=== PATIENT | male | born 1975 | race Caucasian/White ===

== ENCOUNTER 2017-08-11 13:02 | Emergency (ER) | payer SELFPAY ==
[2017-08-11] MEDS ORDERED: NS 0.9% 1000 ML* 1,000 ML IV ONE (13:04)
[2017-08-11] MEDS ORDERED: methylPREDNISolone 125 MG* 2 ML VIAL IV ONE (13:04)
[2017-08-11] MEDS ORDERED: Famotidine IV* 10 MG/ML 2 ML (20 mg) IV SLOW PU ONE (13:04)
--- NOTE | 2017-08-11 13:21 | UC ---
Kayden Wood Julia, scribed for Venita Atkinson MD on 08/11/17 at 1310 . Allergic Reaction HPI - HPI Summary HPI Summary: A 41 year old M presents to [facility] due to an allergic reaction to a bee sting to his right wrist 20 or 30 minutes prior to arrival. Patient states he started to feel some tingling in the back of his throat. Patient denies shortness of breath. No wheezing. No intraoral edema. Patient took 50 mg of Benadryl and his drove him here. Patient without any itching or hives. Patient without nausea or vomiting. Patient without lightheadedness. Patient states he had a reaction to a bee sting when he was a child but nothing else. Patient's medications reviewed - History of Current Complaint Stated Complaint: ALLERGIC REACTION Hx Obtained From: Patient Onset/Duration: Lasting Minutes Location: Discrete @ - throat Character: Pruritus - "tingling" Alleviating Factor(s): OTC Meds Associated Signs And Symptoms: Negative: Difficulty Breathing, Nausea, Throat Tightening - Allergies/Home Medications Allergies/Adverse Reactions: Allergies Allergy/AdvReac Type Severity Reaction Status Date / Time Tetracyclines Allergy Unknown Verified 08/11/17 13:17 Reaction Details muscle relaxer Allergy See Comment Uncoded 08/11/17 13:37 Home Medications: Home Medications diphenhydrAMINE HCl [Benadryl Allergy 25 MG CAP] 50 mg PO ONCE PRN 08/11/17 [ History Confirmed 08/11/17] PMH/Surg Hx/FS Hx/Imm Hx Previously Healthy: Yes - Surgical History Surgical History: None - Family History Known Family History: Positive: Hypertension - Social History Occupation: Employed Full-time - preacher Lives: With Family Alcohol Use: None Substance Use Type: None Smoking Status (MU): Never Smoked Tobacco Review of Systems Skin: Negative ENT: Sore Throat - throat "tingling" Respiratory: Negative Gastrointestinal: Negative All Other Systems Reviewed And Are Negative: Yes Physical Exam - Summary Physical Exam Summary: Vital Signs Reviewed: Yes A+Ox3, no distress speakng full, easy sentences Eyes: Conjunctiva Clear, JAYRO. EOM intact and full ENT: Hearing grossly normal TM x 2 clear, mmoist, uvula midline, no exudate, no erythema no intraoral edema Neck: Positive: Supple Respiratory: Positive: No respiratory distress, No accessory muscle use + CTA throughout no w/r Cardiovascular: RRR nl s1, s2 no m/r CBT <2 sec abd soft + BS nt/nd no guarding, no distension Musculoskeletal Exam: LAZO x 4 without difficulty Strength Intact, ROM Intact Neurological: Positive: Alert, + sensation throughout Psychological: Positive: Normal Response To Family Skin: Positive: no rash, no ecchymosis pt with mild area of edema right wrist - site of sting no hives, no flush Triage Information Reviewed: Yes Re-Evaluation - Re-Evaluation First Eval Change: Unchanged Second Eval Re-Evaluation Time: 13:35 Change: Improved Third Eval Re-Evaluation Time: 13:44 Change: Improved Comment: feeling a little better Allergic Reaction Course/Dx - Course Course Of Treatment: Patient presents with tingling feeling in the back of his throat following a bee sting that happened approximately 30 minutes prior to arrival. Patient with a history of reaction as a child. Patient has not had a reaction adults. Patient 50 g of Benadryl prior to arrival. Patient denies shortness of breath. No drooling. No difficulty with secretions. No wheezing. No lightheadedness. No rash. He did put baking soda on the area of the sting. - Differential Dx/Diagnosis Provider Diagnoses: acute allergic reaction Discharge - Sign-Out/Discharge Documenting (check all that apply): Discharge/Admit/Transfer - Discharge Plan Condition: Stable Disposition: HOME Prescriptions: diPHENhydraMINE PO* [Benadryl PO 25 MG TAB*] 25 mg PO Q6H PRN #30 tab PRN Reason: Itching EPINEPHrine [Epipen 2-Lucas] 0.3 mg IJ ONCE #1 auto.injct Famotidine TAB* [Pepcid 20 MG TAB*] 20 mg PO DAILY #14 tab predniSONE TAB* [Deltasone TAB*] 50 mg PO DAILY #4 tab Patient Education Materials: Anaphylaxis (ED) Referrals: No Primary Care Phys,NOPCP [Primary Care Provider] - Additional Instructions: - Take prednisone exactly as prescribed until gone - starting tomorrow - Okay to take Benadryl (1-2 tablets) every 6 hours as needed. This medication may cause drowsiness - do NOT drive, operate machinery or drink alcohol while taking Benadryl -Take pepcid as prescribed - 2 times daily for 7 days starting tomorrow -Avoid getting over heated (hot showers, hot tubs, exercise) for at least 48 hours - Try to avoid aspirin, NSAIDs (Motrin, Aleve, Naprosyn) for 2-3 days - Okay to apply cool compresses to the area of injury - fill the prescription for the epi pen - keep it with you and use as needed for allergic reactions -Contact your doctor or return here with questions or concerns - Billing Disposition and Condition Condition: STABLE Disposition: Home The documentation as recorded by the Kayden benson Julia accurately reflects the service I personally performed and the decisions made by me, Venita Atkinson MD.
== END 2017-08-11 15:00 | disposition home or self-care (01) ==
LOC: UCEAST 13:02
DX: T63.441A Toxic effect of venom of bees, accidental (unintentional), initial encounter (principal); Z88.1 Allergy status to other antibiotic agents; Z88.8 Allergy status to other drugs, medicaments and biological substances; Y92.9 Unspecified place or not applicable
CPT/HCPCS: 96360; 96374; 96376; 99202; G0463; J2930

== ENCOUNTER 2018-07-10 20:17 | Emergency (ER) | payer MEDICAID, OTHER ==
--- NOTE | 2018-07-10 20:44 | ED ---
HPI Chest Pain - HPI Summary HPI Summary: Patient is a 42 y/o M presenting to ED with complaints of midsternal chest pain. He describes chest pain as if someone was pressing on his back and on his chest. Chest pain onset in the morning yesterday, 07/09/18, upon waking up. He states that the chest pain was present throughout the day but resolved in the evening while he was watching TV. Today, patient went to [employer], drove to [place] [employer], then drove back here to [place], and was shopping at [employer]. Patient states that he became stressed while shopping and experienced onset of chest pain once more. Fever, N/V, calf pain, MCMAHAN, dizziness are denied. He states he was SOB yesterday, 07/09/18. He notes that he begins to cough when chest pain is moderate in severity. At max, pain is rated 4-5/10. Episodes of chest pain last several hours typically. He notes that he had a brief, fleeting episode of chest pain in triage that he rates 2/10 in severity. No chest pain at present. No Hx of HTN, diabetes, HLD. Patient has never smoked, denies alcohol and substance usage. FMHx of cardiac disease is denied, FMHx of HTN is endorsed. Patient takes an allergy medication. Nothing is noted to aggravate/alleviate Sx. Home medications and allergies are reviewed. Allergies Allergy/AdvReac Type Severity Reaction Status Date / Time Tetracyclines Allergy Unknown Verified 07/10/18 20:23 Reaction Details muscle relaxer Allergy See Comment Uncoded 07/10/18 20:23 - History of Current Complaint Chief Complaint: EDChestPainROMI Time Seen by Provider: 07/10/18 20:33 Hx Obtained From: Patient Onset/Duration: Started Days Ago - episodes onset yesterday, 07/09/18, Resolved Timing: Intermittent, Lasting Hours Initial Severity: Moderate - 4-5/10 Current Severity: None Pain Intensity: 4 Pain Scale Used: 0-10 Numeric Chest Pain Location: Mid Sternal Character: Pressure/Squeezing Aggravating Factor(s): Nothing Alleviating Factor(s): Nothing Associated Signs and Symptoms: Positive: Chest Pain, Shortness of Breath, Cough. Negative: Headaches, Dizziness, Fever, Nausea, Calf Pain/Swelling, Vomiting - Allergy/Home Medications Allergies/Adverse Reactions: Allergies Allergy/AdvReac Type Severity Reaction Status Date / Time Tetracyclines Allergy Unknown Verified 07/10/18 20:23 Reaction Details muscle relaxer Allergy See Comment Uncoded 07/10/18 20:23 PMH/Surg Hx/FS Hx/Imm Hx Endocrine/Hematology History: Denies: Hx Diabetes Cardiovascular History: Denies: Hx Hypercholesterolemia, Hx Hypertension Infectious Disease History: No Infectious Disease History: Denies: Traveled Outside the [place] in Last 30 Days - Family History Known Family History: Positive: Hypertension Negative: Cardiac Disease - Social History Alcohol Use: None Substance Use Type: Reports: None Smoking Status (MU): Never Smoked Tobacco Review of Systems Negative: Fever Positive: Chest Pain Positive: Shortness Of Breath, Cough Negative: Vomiting, Nausea Musculoskeletal: Other - NEGATIVE - CALF PAIN Neurological: Other - NEGATIVE - DIZZINESS Negative: Headache All Other Systems Reviewed And Are Negative: Yes Physical Exam - Summary Physical Exam Summary: Appearance: Well-appearing, no pain distress, well-nourished Skin: Warm, color reflects adequate perfusion, dry Head: Normal Head/Face inspection, atraumatic Eyes: Conjunctiva clear ENT: Normal inspection Neck: Supple, no nodes, no JVD Respiratory: Lungs clear, normal breath sounds, no respiratory distress Cardio: RRR, No murmur, pulses normal, brisk capillary refill Abdomen: Soft, nontender Bowel sounds: Present Musculoskeletal: Strength Intact/ROM intact, no calf tenderness, no edema. Psychological: Normal Neuro: Alert, muscle tone normal, no focal deficit Triage Information Reviewed: Yes Vital Signs On Initial Exam: Initial Vitals Temp Pulse Resp BP Pulse Ox 96.8 F 77 16 147/87 98 07/10/18 20:20 07/10/18 20:20 07/10/18 20:20 07/10/18 20:20 07/10/18 20:20 Vital Signs Reviewed: Yes Diagnostics - Vital Signs Vital Signs Temp Pulse Resp BP Pulse Ox 07/10/18 20:20 96.8 F 77 16 147/87 98 - Laboratory Result Diagrams: 07/10/18 20:56 07/10/18 20:56 Lab Statement: Any lab studies that have been ordered have been reviewed, and results considered in the medical decision making process. - Radiology chest x-ray Radiology Interpretation Completed By: ED Physician Summary of Radiographic Findings: CXR showed no acute disease, pending official report. - EKG 2030 Cardiac Rate: NL - rate of 61 BPM EKG Rhythm: Sinus Rhythm ST Segment: Non-Specific Ectopy: None EKG Comparison: Other - no priors to compare Summary of EKG Findings: EKG at 2030 showed sinus rhythm with rate of 61 BPM, nml AV/IV CT, nml QTc, and nml axis. No acute changes. No ectopy, no STEMI, non- specific ST, no priors to compare. Dr. Martin has reviewed and interpreted this EKG. Re-Evaluation - Re-Evaluation First Eval Re-Evaluation Time: 21:54 Comment: Lungs clear, no chest pain, is present, he is agreeable with discharge. Patient to be given albuterol inhaler. Strict return precautions given, patient will follow up with PCP. He is agreeable with discharge. Chest Pain Course/Dx - Course Course Of Treatment: Patient is a 42 y/o M presenting to ED with complaints of midsternal chest pain. He describes chest pain as if someone was pressing on his back and on his chest. Chest pain onset in the morning yesterday, 07/09/18, upon waking up. He states that the chest pain was present throughout the day but resolved in the evening while he was watching TV. Today, patient went to [employer], drove to [place] [employer], then drove back here to [place], and was shopping at [employer]. Patient states that he became stressed while shopping and experienced onset of chest pain once more. Fever, N/V, calf pain, MCMAHAN, dizziness are denied. He states he was SOB yesterday, 07/09/18. He notes that he begins to cough when chest pain is moderate in severity. At max, pain is rated 4-5/10. Episodes of chest pain last several hours typically. He notes that he had a brief, fleeting episode of chest pain in triage that he rates 2/10 in severity. No chest pain at present. No Hx of HTN, diabetes, HLD. Patient has never smoked, denies alcohol and substance usage. FMHx of cardiac disease is denied, FMHx of HTN is endorsed. Physical exam is unremarkable. EKG at 2030 showed sinus rhythm with rate of 61 BPM, nml AV/IV CT, nml QTc, and nml axis. No acute changes. No ectopy , no STEMI, non-specific ST, no priors to compare. Dr. Martin has reviewed and interpreted this EKG. CXR showed no acute disease. Labs showed INR 1.12, ALT 53. Trop was negative. 2153 - Lungs clear, no chest pain, is present, he is agreeable with discharge. Patient to be given albuterol inhaler. Strict return precautions given, patient will follow up with PCP. He is agreeable with discharge. - Diagnoses Provider Diagnoses: Chest pain Discharge - Sign-Out/Discharge Documenting (check all that apply): Patient Departure - discharge Patient Received Moderate/Deep Sedation with Procedure: No - Discharge Plan Condition: Stable Disposition: HOME Prescriptions: Albuterol HFA INHALER* [Ventolin HFA Inhaler*] 1 - 2 puff INH Q4H PRN #1 mdi PRN Reason: Wheezing Patient Education Materials: Chest Pain (ED) Referrals: [facility] [Outside] - 1 Day Additional Instructions: We did not find evidence of a serious cause for your chest pain today. The reading on your chest xray is unofficial. We will contact you if you need further treatment based on the final reading of the chest xray. We have given you a Rx for albuterol (the rescue inhaler) that you may try if you get a coughing spell, short of breath, or wheezing. We have given you a referral to the [facility] clinic, which you may call and arrange to be seen by them until you get established with a primary care provider. Please return to the ER if you have any new or worsening symptoms. - Attestation Statements Document Initiated by Scribe: Yes Documenting Scribe: DANNY CALDWELL Provider For Whom Dell is Documenting (Include Credential): CECIL MARTIN MD Scribe Attestation: DANNY Wood, scribed for CECIL MARTIN MD on 07/10/18 at 2222.
[2018-07-10 21:02] LABS: ABS Basophils 0.1 10^3/ul (0-0.2); ABS Eosinophils 0.4 10^3/ul (0-0.6); ABS Lymphocytes 2.5 10^3/ul (1.0-4.8); ABS Monocytes 0.7 10^3/ul (0-0.8); ABS Neutrophils 5.3 10^3/ul (1.5-7.7); Eosinophil % 4.4 %; Hematocrit 44 % (42-52); Hemoglobin 15.2 g/dL (14.0-18.0); Lymphocyte % 28.3 %; Mean Corpuscular HGB Conc 35 g/dL (31-36); Mean Corpuscular Hemoglobin 31 pg (27-31); Mean Corpuscular Volume 89 fL (80-94); Mean Platelet Volume 7.9 fL (7.4-10.4); Platelet Count 216 10^3/uL (150-450); Red Blood Count 4.92 10^6 /uL (4.18-5.48); Red Cell Distribution Width 13 % (10.5-15)
[2018-07-10 21:07] LABS: INR 1.12 (0.82-1.09)
[2018-07-10 21:22] LABS: Albumin 4.3 g/dL (3.2-5.2); Albumin/Globulin Ratio 1.4 (1-3); BUN/Creatinine Ratio 16.7 (8-20); Calcium 9.5 mg/dL (8.6-10.3); EGFR African American 97.4 (>60); EGFR Non-African American 80.5 (>60); Globulin 3.1 g/dL (2-4); Total Bilirubin 0.7 mg/dL (0.2-1.0); Total Protein 7.4 g/dL (6.4-8.9)
[2018-07-10 22:04] LABS: C Reactive Protein 7.04 mg/L (<8.01)
[2018-07-10 22:12] VITALS: BP 119/82
== END 2018-07-10 22:11 | disposition home or self-care (01) ==
LOC: ED 20:17
DX: R07.9 Chest pain, unspecified (principal); R06.02 Shortness of breath; R05 Cough
CPT/HCPCS: 36415; 71045; 80053; 84484; 85025; 85610; 86140; 93005; 99283

== ENCOUNTER 2019-01-02 04:44 | Emergency (ER) | payer OTHER ==
--- NOTE | 2019-01-02 05:17 | ED ---
Back Pain - HPI Summary HPI Summary: The patient is a 43 y/o M presenting to [facility] with a chief complaint of sudden onset lumbar back pain onset at 2300 last night. He reports that he was lying down watching TV when he stood up and had an abrupt onset lower back pain. The pain persisted, but he attempt to go to sleep. He had difficulty sleeping, and decided to come here. Pain is rated 6/10 in severity. He has not used any medications to treat the pain [employer]. Bending over and lifting the leg aggravates the pain, and raising the right leg does not aggravate the pain. He denies any fevers, chills, or numbness in the legs. No recent trauma or history of back problems. He was recently at the chiropractor a few weeks ago after twisting his back, but the pain subsided immediately following the appointment. He notes he was in [facility] from 12/18/18-12/31/18. No recent illnesses. No PMHx. Medications reviewed. Allergies noted. - History of Current Complaint Chief Complaint: EDBackInjuryPain Stated Complaint: BACK PAIN PER PT Time Seen by Provider: 01/02/19 05:07 Hx Obtained From: Patient Onset/Duration: Sudden Onset, Lasting Hours - since 2300 last night, Still Present Onset/Duration: Started Hours Ago, Still Present Timing: Constant, Lasting Hours Back Pain Location: Is Discrete @ - lumbar Severity Initially: Moderate Severity Currently: Moderate Pain Intensity: 6 Pain Scale Used: 0-10 Numeric Character: Sharp Aggravating Symptom(s): Lifting - left leg, not right, Bending Alleviating Symptom(s): Rest Associated Signs And Symptoms: Negative: Fever, Numbness, Other - chills - Allergies/Home Medications Allergies/Adverse Reactions: Allergies Allergy/AdvReac Type Severity Reaction Status Date / Time Tetracyclines Allergy Unknown Verified 01/02/19 04:47 Reaction Details muscle relaxer Allergy See Comment Uncoded 01/02/19 04:47 PMH/Surg Hx/FS Hx/Imm Hx Endocrine/Hematology History: Denies: Hx Diabetes Cardiovascular History: Denies: Hx Hypercholesterolemia, Hx Hypertension - Surgical History Surgical History: None Surgery Procedure, Year, and Place: none Infectious Disease History: No Infectious Disease History: Reports: Traveled Outside the [place] in Last 30 Days - Family History Known Family History: Positive: Hypertension Negative: Cardiac Disease - Social History Alcohol Use: None Hx Substance Use: No Substance Use Type: Reports: None Hx Tobacco Use: No Smoking Status (MU): Never Smoked Tobacco Review of Systems Negative: Fever, Chills Positive: Other - lumbar back pain Negative: Numbness - in legs All Other Systems Reviewed And Are Negative: Yes Physical Exam - Summary Physical Exam Summary: Appearance: Well-appearing, Well-nourished, lying in bed comfortably Skin: Warm, dry, no obvious rash Eyes: sclera anicteric, no conjunctival pallor ENT: mucous membranes moist, pharynx appears normal Neck: Supple, nontender Respiratory: Clear to auscultation, no signs of respiratory distress Cardiovascular: Normal S1, S2. No murmurs. Normal distal pulses in tibial and radial bilaterally. Abdomen: Soft, nontender, normal active bowel sounds present Musculoskeletal: Mild back tenderness to palpation of the left side paravertebral lumbar muscles, Strength/ROM Intact Neurological: A&Ox3, awake and alert, mentation is normal, speech is fluent and appropriate, deep tendon reflexes 2+ and symmetric, no clonus, no sensory abnormalities, patient able to stand unaided and to go on toes and heels Psychiatric: affect is normal, does not appear anxious or depressed Triage Information Reviewed: Yes Vital Signs On Initial Exam: Initial Vitals Temp Pulse Resp BP Pulse Ox 97 F 85 15 140/91 97 01/02/19 04:46 01/02/19 04:46 01/02/19 04:46 01/02/19 04:46 01/02/19 04:46 Vital Signs Reviewed: Yes Procedures - Sedation Patient Received Moderate/Deep Sedation with Procedure: No Diagnostics - Vital Signs Vital Signs Temp Pulse Resp BP Pulse Ox 01/02/19 04:46 97 F 85 15 140/91 97 - Laboratory Lab Statement: Any lab studies that have been ordered have been reviewed, and results considered in the medical decision making process. Re-Evaluation - Re-Evaluation First Eval Re-Evaluation Time: 06:30 Change: Improved Comment: His pain has improved at rest, but with movement the pain is still slightly present. Back Pain Course/Dx - Course Course Of Treatment: Patient is a 43 y/o M with chief complaint of sudden onset lumbar back pain onset at 2300 last night when moving from a sitting to erect position which is aggravated by bending and lifting the right leg. No numbness. No recent trauma. Physical exam reveals mild back tenderness to palpation of the left side paravertebral lumbar muscles, deep tendon reflexes 2+ and symmetric without clonus or sensory abnormalities, and he is able to stand unaided and to go on toes and heels. In the ED course, the patient was administered Naproxen and Ativan. The back pain has been relieved. I believe that the pain is of musculoskeletal nature since he does not have any neurological deficits at this time. We discussed findings and plan for discharge with rx for Ativan and Naproxen. He understands and agrees. Dx of back pain. - Diagnoses Provider Diagnoses: Back pain Discharge ED - Sign-Out/Discharge Documenting (check all that apply): Patient Departure - Patient will be discharged home. - Discharge Plan Condition: Good Disposition: HOME Prescriptions: LORazepam TAB(*) [Ativan 0.5 MG TAB (*)] 0.5 mg PO TID PRN #20 tab MDD 3 PRN Reason: Back spasms Naproxen TAB* [Naprosyn 375 mg TAB*] 375 mg PO BID #30 tab Patient Education Materials: Back Pain (ED) Referrals: [facility] [Outside] - Billing Disposition and Condition Condition: GOOD Disposition: Home - Attestation Statements Document Initiated by Tawandaibe: Yes Documenting Scribe: Bhumi Herndon Provider For Whom Dell is Documenting (Include Credential): Dr. Mathew Fenton MD Scribe Attestation: Bhumi Wood scribed for Dr. Mathew Fenton MD on 01/03/19 at 0522. Scribe Documentation Reviewed: Yes Provider Attestation: The documentation as recorded by the Bhumi benson accurately reflects the service I personally performed and the decisions made by me, Dr. Mathew Fenton MD Status of Scribbarbie Document: Viewed
[2019-01-02] MEDS ORDERED: Naproxen TAB* 375 MG PO ONE (05:26)
[2019-01-02] MEDS ORDERED: LORazepam TAB(*) 1 MG PO ONE (05:26)
[2019-01-02 07:10] VITALS: BP 123/79
== END 2019-01-02 07:10 | disposition home or self-care (01) ==
LOC: ED 04:44
DX: M54.9 Dorsalgia, unspecified (principal); Z88.1 Allergy status to other antibiotic agents; Z88.8 Allergy status to other drugs, medicaments and biological substances
CPT/HCPCS: 99283; A9270-GY